=== PATIENT | female | born 1940 | race Caucasian/White ===

== ENCOUNTER 2017-09-05 09:04 | Emergency (ER) | payer BC ==
[2017-09-05 09:09] VITALS: TEMP 97.7
--- NOTE | 2017-09-05 09:20 | CPEKG ---
Heart Rate: 55 RR Interval: 1091 P-R Interval: 200 QRSD Interval: 162 QT Interval: 468 QTC Interval: 448 P [place]: 39 QRS [place]: -28 T Wave [place]: 140 EKG Severity - ABNORMAL ECG - EKG Impression: SINUS RHYTHM EKG Impression: LEFT BUNDLE BRANCH BLOCK Electronically Signed By: Malinda Somers 05-Sep-2017 15:30:10
[2017-09-05 09:37] LABS: PLATELET COUNT 267 10^3/uL (150-400)
--- NOTE | 2017-09-05 09:47 | EDPHY ---
H & P Time Seen by Provider: 09/05/17 09:20 HPI/ROS: CHIEF COMPLAINT: Shortness of breath, palpitations HISTORY OF PRESENT ILLNESS: 76-year-old female with a history of cardiomyopathy presents with shortness of breath and palpitations. Onset of shortness of breath 3-4 days ago. The shortness of breath is quite mild and occurs with exertion and sometimes at rest. Associated with a sensation of a pounding heart rate over the past 24 hr. Her heart rate is not fast and not irregular. The SOB has not limited her activity. No associated chest pain, cough or fever. She has a history of cardiomyopathy 10-15 years ago and is on lisinopril and the beta-jonathan. 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 Prior cardiac catheterization revealed normal coronary arteries. Recent treadmill test was unremarkable. Under a lot of stress recently. [place] out of state and is in [place] to help her son. REVIEW OF SYSTEMS: Constitutional: No fever, no chills Eyes: No visual changes ENT: No sore throat Respiratory: No cough Cardiac: No chest pain Gastrointestinal: No nausea, no vomiting, no abdominal pain Genitourinary: no dysuria Musculoskeletal: No leg pain or swelling Skin: No rash Neurological: No headache, no numbness, no weakness Psychiatric: Recent anxiety Past Medical/Surgical History: Cardiomyopathy Rheumatic fever in childhood Social History: Visiting from out of state Smoking Status: Never smoked Physical Exam: General Appearance: Alert, pleasant Eyes: Pupils equal and round, no conjunctival pallor ENT, Mouth: Mucous membranes moist Neck: Normal inspection Respiratory: normal respiratory rate, Lungs are clear to auscultation Cardiovascular: Regular rate and rhythm Gastrointestinal: Abdomen is soft and nontender Neurological: A&O, nonfocal, normal gait Skin: Warm and dry, no rash Extremities: Nontender, no pedal edema Psychiatric: Anxious Constitutional: Initial Vital Signs Temperature (C) 36.5 C 09/05/17 09:07 Heart Rate 61 09/05/17 09:07 Respiratory Rate 20 09/05/17 09:07 Blood Pressure 164/68 H 09/05/17 09:07 O2 Sat (%) 92 09/05/17 09:07 O2 Delivery Mode Room Air Allergies/Adverse Reactions: No Known Allergies Allergy (Unverified 09/05/17 09:05) Home Medications: Medication Instructions Recorded Atorvastatin Calcium 09/05/17 Humira 09/05/17 L-Thyroxine 09/05/17 Methotrexate 09/05/17 Metoprolol Succinate 09/05/17 Mybetriq 09/05/17 Ramipril 09/05/17 Medical Decision Making - Diagnostics EKG Interpretation: EKG interpreted by me reveals sinus rhythm, rate 55, left bundle branch block. Imaging Results: Chest X-Ray 09/05/17 09:31 Impression: 1. Chronic mild airways disease and minimal cardiomegaly. 2. No acute process. 3. Old mild mid compression deformity. ED Course/Re-evaluation: This patient presents with mild shortness of breath and a pounding heartbeat. Initial vital signs are normal, including normal oxygen saturation, and she is asymptomatic at rest. Stat EKG reveals no evidence of ischemia or dysrhythmia. Thorough evaluation, including CXR, BNP and ddimer, unremarkable. playground monitor: NSR throughout. No evidence of serious cardiopulm etiology of sx. Pt will be in [place] for a few weeks, so I encouraged her to f/u PCP/cards if sx persist. Pt feels sx related to stress, requests anxiolytic. Suggested benadryl to help her sleep, consider anxiolytic if remains symptomatic. Differential Diagnosis: Differential diagnosis includes though it is not limited to pneumonia, pneumothorax, pulmonary embolism, aortic dissection, pericarditis, acute coronary syndrome. - Data Points Laboratory Results: Laboratory Results 09/05/17 09:20 09/05/17 09:20 Departure - Departure Disposition: Home, Routine, Self-Care Clinical Impression: Dyspnea Qualifiers: Dyspnea type: shortness of breath Qualified Code(s): R06.02 - Shortness of breath; R06.00 - Dyspnea, unspecified; R06.01 - Orthopnea Condition: Good Instructions: Dyspnea (ED) Additional Instructions: Return for worsening symptoms or any concerns. Referrals: Alma Rosa Villarreal MD [Medical Doctor] - 1 day, if not improved
[2017-09-05 10:41] VITALS: BP 113/61; PULSE 51; RESP 18; O2SAT 96
== END 2017-09-05 10:55 | disposition home or self-care (01) ==
DX: R06.02 Shortness of breath (principal)

== ENCOUNTER 2018-08-29 00:06 | Observation (INO) | payer OTHER ==
--- NOTE | 2018-08-29 00:28 | EDPHY ---
H & P Stated Complaint: Back pain, chest pain x2 days Time Seen by Provider: 08/29/18 00:15 HPI/ROS: Chief Complaint: Chest pain, back pain HPI: 77-year-old woman [place] from [place] state with a history of idiopathic cardiomyopathy and a known left bundle branch block is been having intermittent waxing waning chest pain for the last 2 days. Pain is no right side of her chest. Is described as sharp. At worst is a 7/10. Currently a 4/10. It does come and go. Is not exertional. Has a history of similar episodes in the past when she was diagnosed with the idiopathic cardiomyopathy and was told she had some heart damage at that time. No fevers or chills. No cough. Very mild shortness of breath. No nausea or vomiting. No leg pain or swelling. She has been in town for about a week. ROS: 10 systems were reviewed and were negative except those elements noted in the HPI. PMH: Idiopathic cardiomyopathy, rheumatoid arthritis, left bundle branch block Social History: No smoking, occasional alcohol, no recreational drug use Family History: non-contributory Physical Exam: Gen: Awake, Alert, No Distress HEENT: Nose: no rhinorrhea Eyes: PERRLA, EOMI Mouth: Moist mucosa Neck: Supple, no JVD Chest: nontender, lungs clear to auscultation Heart: S1, S2 normal, no murmur Abd: Soft, non-tender, no guarding Back: no CVA tenderness, no midline tenderness Ext: no edema, non-tender Skin: no rash Neuro: CN II-XII intact, Sensation grossly intact, Strength 5/5 in bilateral upper and lower extremities - Personal History Current Tetanus Diphtheria and Acellular Pertussis (TDAP): No - Medical/Surgical History Hx Asthma: No Hx Chronic Respiratory Disease: No Hx Diabetes: No Hx Cardiac Disease: Yes Hx Renal Disease: No Hx Cirrhosis: No Hx Alcoholism: No Hx HIV/AIDS: No Hx Splenectomy or Spleen Trauma: No Other PMH: RA/LBBB - Social History Smoking Status: Never smoked Constitutional: Initial Vital Signs Temperature (C) 36.3 C 08/29/18 00:10 Heart Rate 60 08/29/18 00:10 Respiratory Rate 19 08/29/18 00:10 Blood Pressure 166/65 H 08/29/18 00:10 O2 Sat (%) 96 08/29/18 00:10 O2 Delivery Mode Room Air Allergies/Adverse Reactions: No Known Allergies Allergy (Unverified 08/29/18 00:09) Home Medications: Medication Instructions Recorded Atorvastatin Calcium 09/05/17 Humira 09/05/17 L-Thyroxine 09/05/17 Methotrexate 09/05/17 Metoprolol Succinate 09/05/17 Mybetriq 09/05/17 Ramipril 09/05/17 Medical Decision Making - Diagnostics EKG Interpretation: ECG time 12:21 a.m., sinus rhythm with a rate of 53. Left bundle branch block. Imaging Results: Chest x-ray: No acute infiltrate or abnormality per my interpretation. ED Course/Re-evaluation: 77-year-old with a history of idiopathic cardiomyopathy and left bundle branch block presenting with intermittent chest pain for the last couple of days. ECG shows left bundle-branch block. Normal troponin. She has not have any records here she is visiting from out of town. Given her left bundle branch block in her history will admit for cardiac rule out and further evaluation. - Data Points Laboratory Results: Laboratory Results 08/29/18 00:20 08/29/18 00:20 08/29/18 08/29/18 08/29/18 00:26 00:20 00:20 WBC 8.33 10^3/uL 10^3/uL (3.80-9.50) RBC 4.60 10^6/uL 10^6/uL (4.18-5.33) Hgb 14.8 g/dL g/dL (12.6-16.3) Hct 43.8 % % (38.0-47.0) MCV 95.2 fL fL (81.5-99.8) MCH 32.2 pg pg (27.9-34.1) MCHC 33.8 g/dL g/dL (32.4-36.7) RDW 13.4 % % (11.5-15.2) Plt Count 245 10^3/uL 10^3/uL (150-400) MPV 9.8 fL fL (8.7-11.7) Neut % (Auto) 36.4 % L % (39.3-74.2) Lymph % (Auto) 43.1 % % (15.0-45.0) [place] % (Auto) 13.0 % % (4.5-13.0) Eos % (Auto) 6.8 % % (0.6-7.6) Baso % (Auto) 0.5 % % (0.3-1.7) Nucleat RBC Rel Count 0.0 % % (0.0-0.2) Absolute Neuts (auto) 3.03 10^3/uL 10^3/uL (1.70-6.50) Absolute Lymphs (auto) 3.59 10^3/uL H 10^3/uL (1.00-3.00) Absolute Monos (auto) 1.08 10^3/uL H 10^3/uL (0.30-0.80) Absolute Eos (auto) 0.57 10^3/uL H 10^3/uL (0.03-0.40) Absolute Basos (auto) 0.04 10^3/uL 10^3/uL (0.02-0.10) Absolute Nucleated RBC 0.00 10^3/uL 10^3/uL (0-0.01) Immature Gran % 0.2 % % (0.0-1.1) Immature Gran # 0.02 10^3/uL 10^3/uL (0.00-0.10) Sodium 141 mEq/L mEq/L (135-145) Potassium 4.0 mEq/L mEq/L (3.5-5.2) Chloride 107 mEq/L mEq/L (97-110) Carbon Dioxide 26 mEq/l mEq/l (22-31) Anion Gap 8 mEq/L mEq/L (6-14) BUN 30 mg/dL H mg/dL (7-23) Creatinine 0.9 mg/dL mg/dL (0.6-1.0) Estimated GFR > 60 Glucose 100 mg/dL mg/dL (70-100) Calcium 9.9 mg/dL mg/dL (8.5-10.4) POC Troponin I 0.00 ng/mL ng/mL (0.00-0.08) Point of Care Test Results: Chemistry 08/29/18 00:26 POC Troponin I 0.00 ng/mL ng/mL (0.00-0.08) Departure - Departure Disposition: [facility] Clinical Impression: Chest pain Condition: Fair Referrals: Patient,NotPresent [Unknown] - As per Instructions
[2018-08-29 00:38] LABS: PLATELET COUNT 245 10^3/uL (150-400)
[2018-08-29] MEDS ORDERED: ACETAMINOPHEN 325 MG TAB PO PRN (00:58)
[2018-08-29] MEDS ORDERED: ONDANSETRON DISINTEGRATING 4 MG TAB PO PRN (00:58)
[2018-08-29] MEDS ORDERED: ONDANSETRON 4 MG/2 ML VIAL IVP PRN (00:58)
[2018-08-29] MEDS ORDERED: NITROGLYCERIN 0.4 MG BTL SL PRN (01:00)
[2018-08-29] MEDS ORDERED: ASPIRIN 325 MG TAB PO ONE (01:00)
--- NOTE | 2018-08-29 04:12 | PDGENHP ---
History and Physical - Chief Complaint chest pain - History of Present Illness Source - Patient provides history and appears reliable. EMR reviewed and case discussed with ED provider. HPI - Pleasant 77 yo F with pmhx significant for rheumatic heart disease with idiopathic cardiomyopathy, persistent LBBB on EKG, HTN, RA, HLD who presents to the ED today with complaint of 2 days intermittent right sided chest wall. Patient report pain ranges 4/10-7/10 max. no alleviating or aggravating factors that patient can identify. Patient denies any pain wtih movement or inspiration. She denies any associated nausea/vomiting or diaphoresis. She does not mild dyspnea with exertion. Patient lives in [place] and she is visiting friends for next few weeks. She was up in [place] over the weekend and noted increased GUERRA. She denies any LE edema. no orthopnea or PND. Patient also reports she started to lift weights in the past week and thought maybe she pulled something. History Information - Allergies/Home Medication List Allergies/Adverse Reactions: No Known Allergies Allergy (Unverified 08/29/18 00:09) Home Medications: Atorvastatin Calcium 09/05/17 [Last Taken Unknown] Humira 09/05/17 [Last Taken Unknown] L-Thyroxine 09/05/17 [Last Taken Unknown] Methotrexate 09/05/17 [Last Taken Unknown] Metoprolol Succinate 09/05/17 [Last Taken Unknown] Mybetriq 09/05/17 [Last Taken Unknown] Ramipril 09/05/17 [Last Taken Unknown] I have personally reviewed and updated: family history, medical history, social history, surgical history - Past Medical History Additional medical history: HTN, HLD, osteopenia, RA on MTX, idiopathic cardiomyopathy , chronic LBBB, overactive bladder - Surgical History Additional surgical history: cataract exraction with lens placement. - Family History Additional family history: father - SC/CVA at advanced age. mother - Rheumatic heart disease - Social History Smoking Status: Never smoked Alcohol Use: Occasionally Drug Use: None Additional social history: Patient is and visiting from [place]. COR - FULL. Review of Systems Review of Systems: ROS: 10pt was reviewed & negative except for what was stated in HPI & below Physical Exam Physical Exam: Selected Entries 08/29/18 00:10 Blood Pressure Automatic Method Heart Rate 60 Respiratory 19 Rate O2 Sat (%) 96 Temperature (C) 36.3 C Blood Pressure 166/65 H Mean Arterial 98 Pressure (MAP) O2 Delivery Room Air Mode Temperature Oral Source Temp Pulse Resp BP Pulse Ox 36.3 C 50 L 16 116/68 92 08/29/18 00:10 08/29/18 03:38 08/29/18 03:38 08/29/18 03:38 08/29/18 03:38 Constitutional: no apparent distress Eyes: PERRL (lens reflex appreciated bilaterally. ), EOMI, No icteric sclera, No scleral injection Ears, Nose, Mouth, Throat: moist mucous membranes, other (no nasal discharge. ) , No poor dentition Cardiovascular: regular rate and rhythym, no murmur, rub, or gallop, systolic murmur, pulses symmetric bilaterally, No edema Peripheral Pulses: 1+: dorsalis-pedis (R), dorsalis-pedis (L) Respiratory: no respiratory distress, no rales or rhonchi, clear to auscultation , No bronchial breath sounds Gastrointestinal: normoactive bowel sounds, soft, non-tender abdomen, no palpable masses, No distension Genitourinary: no bladder tenderness, No ga in urethra Skin: warm, normal color, no rashes or abrasions Musculoskeletal: full muscle strength, No generalized weakness Neurologic: AAOx3, sensation intact bilaterally, other (grossly nonfocal.), No facial droop Psychiatric: interacting appropriately, not anxious, not encephalopathic, thought process linear Lab Data & Imaging Review 08/29/18 00:20 08/29/18 00:20 WBC 8.33 10^3/uL (3.80-9.50) 08/29/18 00:20 RBC 4.60 10^6/uL (4.18-5.33) 08/29/18 00:20 Hgb 14.8 g/dL (12.6-16.3) 08/29/18 00:20 Hct 43.8 % (38.0-47.0) 08/29/18 00:20 MCV 95.2 fL (81.5-99.8) 08/29/18 00:20 MCH 32.2 pg (27.9-34.1) 08/29/18 00:20 MCHC 33.8 g/dL (32.4-36.7) 08/29/18 00:20 RDW 13.4 % (11.5-15.2) 08/29/18 00:20 Plt Count 245 10^3/uL (150-400) 08/29/18 00:20 MPV 9.8 fL (8.7-11.7) 08/29/18 00:20 Neut % (Auto) 36.4 % (39.3-74.2) L 08/29/18 00:20 Lymph % (Auto) 43.1 % (15.0-45.0) 08/29/18 00:20 [place] % (Auto) 13.0 % (4.5-13.0) 08/29/18 00:20 Eos % (Auto) 6.8 % (0.6-7.6) 08/29/18 00:20 Baso % (Auto) 0.5 % (0.3-1.7) 08/29/18 00:20 Nucleat RBC Rel Count 0.0 % (0.0-0.2) 08/29/18 00:20 Absolute Neuts (auto) 3.03 10^3/uL (1.70-6.50) 08/29/18 00:20 Absolute Lymphs (auto) 3.59 10^3/uL (1.00-3.00) H 08/29/18 00:20 Absolute Monos (auto) 1.08 10^3/uL (0.30-0.80) H 08/29/18 00:20 Absolute Eos (auto) 0.57 10^3/uL (0.03-0.40) H 08/29/18 00:20 Absolute Basos (auto) 0.04 10^3/uL (0.02-0.10) 08/29/18 00:20 Absolute Nucleated RBC 0.00 10^3/uL (0-0.01) 08/29/18 00:20 Immature Gran % 0.2 % (0.0-1.1) 08/29/18 00:20 Immature Gran # 0.02 10^3/uL (0.00-0.10) 08/29/18 00:20 Sodium 141 mEq/L (135-145) 08/29/18 00:20 Potassium 4.0 mEq/L (3.5-5.2) 08/29/18 00:20 Chloride 107 mEq/L (97-110) 08/29/18 00:20 Carbon Dioxide 26 mEq/l (22-31) 08/29/18 00:20 Anion Gap 8 mEq/L (6-14) 08/29/18 00:20 BUN 30 mg/dL (7-23) H 08/29/18 00:20 Creatinine 0.9 mg/dL (0.6-1.0) 08/29/18 00:20 Estimated GFR > 60 08/29/18 00:20 Glucose 100 mg/dL (70-100) 08/29/18 00:20 Calcium 9.9 mg/dL (8.5-10.4) 08/29/18 00:20 POC Troponin I 0.00 ng/mL (0.00-0.08) 08/29/18 00:26 Troponin I < 0.012 ng/mL (0.000-0.034) 08/29/18 00:20 Imaging Review: CXR - image reviewed myself. report still pending. no cardiomegaly. no consolidations. Visualized and Interpreted Chest x-ray results: Yes Chest X-Ray results: no infiltrate EKG additional interpertation: ekg reviewed myself - NSR - 150s. LBBB Assessment & Plan Assessment: Pleasant 77 yo F with pmhx significant for rheumatic heart disease with idiopathic cardiomyopathy, persistent LBBB on EKG, HTN, RA, HLD who presents to the ED today with complaint of 2 days intermittent right sided chest wall. #Chest pain (Acute) - ddx including MSK vs pleuritic vs. coronary. low suspicion for PE, no evidence for pneumonia. HEART score 4. Patient reports a stress echo 3-4 years ago. serial trops and plann for lexistress. patient reports she would not be able to tolerate treadmill testing 2/2 increased dyspnea on exertion since arriving to [facility]. chronic medical problems. #benign essential HTN - BP initially elevated improved. continue lisinopril and holding metoprolol pending stress test. #HLD. check lipid panel. continue statin #idiopathic cardiomyopathy - patient without evidence of decompensation. #overactive bladder - resume myrbetriq when med list reconciled. #RA on methotrexate. FEN - IVF overnight. electrolytes adequate do not require replacement. PPX - SCDs. holding anticoagulation pending testing. COR - FULL Dispo - Admit to observation on PCU for close cardiac monitoring.
[2018-08-29] MEDS ORDERED: REGADENOSON 0.4 MG/5 ML SYR IVP ONE (11:22)
--- NOTE | 2018-08-29 11:53 | CPEKG ---
Test Reason : OPEN Blood Pressure : / mmHG Vent. Rate : 058 BPM Atrial Rate : 058 BPM P-R Int : 201 ms QRS Dur : 161 ms QT Int : 509 ms P-R-T Axes : 037 -27 154 degrees QTc Int : 501 ms Sinus rhythm Left bundle branch block Confirmed by Trevor Olivas [id number]) on 08/29/2018 11:52:38 AM Referred By: Smita Skinner Confirmed By:Trevor Olivas
--- NOTE | 2018-08-29 13:03 | CPR ---
[f rep st] NONINVASIVE CARDIAC PROCEDURE REPORT PROCEDURE: Lexiscan injection of Lexiscan myocardial perfusion imaging study. SUPERVISING PLOW HOLDER: Patrick Pemberton MD INDICATION FOR PROCEDURE: Chest pain, left bundle-branch block. PRE: After obtaining informed consent, ensuring patient's n.p.o. status of caffeine for greater than 12 hours, the patient was placed on electrocardiogram. Patient was sinus rhythm with left bundle-br anch block, initial blood pressure of 140/56, saturation 95% on room air. Patient reports no chest p ain, pressure, or symptoms suggesting of ischemia. INJECTION: Patient was given Lexiscan slow IV push, followed by nuclear isotope. Within 1 minute, s he did report some mild shortness of breath, and mild back discomfort, but reporting no chest pain or pressure. Was noted heart rate jumped up to 88 beats per minute, blood pressure remained stable at 142/60, saturation at 98. Within 2 minutes post injection, patient reporting symptoms mostly subsidi ng. She was given a caffeinated beverage at this time, which did help make all the symptoms dissipat e. Vital signs remained stable, no significant change in EKG. Within 5 minutes post testing, she re ported all symptoms subsided. Final blood pressure of 140/60, saturation 98, heart rate 78 beats per minute. No EKG changes. IMPRESSION: A 77-year-old female, underwent Lexiscan myocardial perfusion imaging study. No arrhyth mias noted during injection. No significant electrocardiogram changes. Patient did report shortness of breath and back pain, post injection which subsided with caffeinated beverage and time. Vital si gns are stable. She is currently symptom free. She will finish poststress imaging in [place] at this time. /[id number]/MODL
[2018-08-29 16:01] VITALS: BP 125/56
--- NOTE | 2018-08-29 17:50 | PDDCSUM ---
Discharge Summary Discharge Summary: Discharge diagnosis Chest pain Rheumatic heart disease with idiopathic cardiomyopathy Left bundle branch block Hypertension Rheumatoid arthritis Hyperlipidemia Hypothyroid The patient is a 77-year-old female with past medical history as listed above who presented with chest pain. The patient is visiting from [place] and was in [place] when her chest pain developed. She had a left bundle branch block on her EKG which is not new, and her troponins were negative. Because of her abnormal EKG a Lexiscan stress test was ordered. The results of her Lexiscan stress test showed no evidence of any ischemia. She was discharged home in good condition to follow up with her primary care per provider. Dispo charge disposition Home in good condition Discharge medications Resume home medications unchanged
== END 2018-08-29 17:22 | disposition home or self-care (01) ==
LOC: F2W 09:20
PROVIDERS: ADMIT Family Medicine; ATTEND Internal Medicine
DX: R07.89 Other chest pain (principal); I42.9 Cardiomyopathy, unspecified; I44.7 Left bundle-branch block, unspecified; I10 Essential (primary) hypertension; M06.9 Rheumatoid arthritis, unspecified; E78.5 Hyperlipidemia, unspecified; E03.9 Hypothyroidism, unspecified
CPT/HCPCS: 71046; 78452; 93005; 93017; A9500; G0378; J2270; J2405; J2785; 84484-ER